=== PATIENT | male | born 1950 | race American Indian/Alaskan Native ===

== ENCOUNTER 2020-06-05 12:57 | Emergency (ER) | payer OTHER, MEDICARE ==
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
[2020-06-05 18:56] VITALS: BP 180/80
== END 2020-06-05 18:56 | disposition home or self-care (01) ==
LOC: ED 12:57
DX: S90.32XA Contusion of left foot, initial encounter (principal); S40.011A Contusion of right shoulder, initial encounter; Z79.899 Other long term (current) drug therapy; V89.2XXA Person injured in unspecified motor-vehicle accident, traffic, initial encounter; Y93.89 Activity, other specified; Y92.410 Unspecified street and highway as the place of occurrence of the external cause; Y99.8 Other external cause status